=== PATIENT | female | born 1965 | race Caucasian/White ===

== ENCOUNTER 2017-04-12 17:46 | Emergency (ER) | payer BC ==
[2017-04-12 18:09] VITALS: BP 131/94
[2017-04-12] MEDS ORDERED: Tetan/Diph/Pertus SYR(Tdap)* 0.5 ML SYR(BOOSTRIX) use SYR IM ONE (18:39)
--- NOTE | 2017-04-12 18:48 | UC ---
Skin Complaint HPI - HPI Summary HPI Summary: This is a 51 yo female who cut herself shaving last week. She has been treating the area with triple antibiotic ointment and hydrogen peroxide. She reports she has persistent redness around the wound. No fever, malaise or drainage from the area. No significant pain in the leg. - History of Current Complaint Chief Complaint: UCSkin Time Seen by Provider: 04/12/17 18:15 Stated Complaint: RT LEG SKIN COMPLAINT Hx Last Menstrual Period: n/a - Allergy/Home Medications Allergies/Adverse Reactions: Allergies Allergy/AdvReac Type Severity Reaction Status Date / Time No Known Allergies Allergy Verified 04/12/17 18:03 Home Medications: Home Medications Multiple Vitamin [Multivitamins] 1 cap PO DAILY 04/12/17 [History Confirmed 12/22] Sertraline* [Zoloft*] 50 mg PO DAILY 04/12/17 [History Confirmed 04/12/17] Review of Systems Constitutional: Negative Skin: Other - non-healing wound Eyes: Negative ENT: Negative Respiratory: Negative Cardiovascular: Negative Gastrointestinal: Negative Genitourinary: Negative Motor: Negative Neurovascular: Negative Musculoskeletal: Negative Neurological: Negative Psychological: Negative All Other Systems Reviewed And Are Negative: Yes PMH/Surg Hx/FS Hx/Imm Hx Previously Healthy: Yes - Surgical History Surgical History: Yes Surgery Procedure, Year, and Place: hysterectomy 4-5 yrs ago - Family History Known Family History: Positive: None - Social History Alcohol Use: Occasionally Substance Use Type: None Smoking Status (MU): Never Smoked Tobacco Physical Exam Triage Information Reviewed: Yes Appearance: Well-Appearing Vital Signs: Initial Vital Signs Temp 99.3 F 04/12/17 18:05 Pulse 82 04/12/17 18:05 Resp 16 04/12/17 18:05 BP 131/94 04/12/17 18:05 Pulse Ox 99 04/12/17 18:05 Vital Signs Reviewed: Yes ENT Exam: Normal ENT: Positive: Hearing grossly normal Neck exam: Normal Neck: Positive: Supple, Nontender Respiratory: Positive: Lungs clear. Negative: Crackles, Rhonchi, Wheezing Cardiovascular Exam: Normal Cardiovascular: Positive: RRR, No Murmur Abdominal Exam: Normal Abdomen Description: Positive: Nontender, Soft Musculoskeletal Exam: Normal Musculoskeletal: Positive: Strength Intact Neurological Exam: Normal Neurological: Positive: Alert Skin: Positive: Other - wound on the lateral ankle ~3cm in length, some surrounding redness, no drainage Course/Dx - Course Course Of Treatment: This is a 51 yo female with a non-healing mildly infected leg wound from recent shaving accident. She is anxious about it not healing and an upcoming [place] vacation. Recommended that she stop using the triple abx ointment and H2O2. Use bacitracin and cover the area. If redness persists or becomes worse then wrote additional Rx for Keflex given her upcoming travel. - Differential Diagnoses - Skin Complaint Differential Diagnoses: Abscess, Cellulitis - Diagnoses Provider Diagnoses: 1. Infected R lower leg wound Discharge - Discharge Plan Condition: Stable Disposition: HOME Prescriptions: Bacitracin Zinc [Bacitracin] 1 applic TOPICAL BID #1 tube Cephalexin CAP* [Keflex CAP*] 500 mg PO TID #21 cap Patient Education Materials: Wound Infection (ED) Referrals: Kaitlynn Love MD [Primary Care Provider] - If Needed Additional Instructions: Instructions: 1. Please use bacitracin ointment twice daily 2. Cover with a bandage daily 3. If there is worsening redness start taking the oral antibiotic (Keflex) as prescribed
== END 2017-04-12 18:46 | disposition home or self-care (01) ==
LOC: UCCORT 17:46
DX: S81.811A Laceration without foreign body, right lower leg, initial encounter (principal); L08.9 Local infection of the skin and subcutaneous tissue, unspecified; Y93.E1 Activity, personal bathing and showering; W26.8XXA Contact with other sharp object(s), not elsewhere classified, initial encounter
CPT/HCPCS: 90471; 90715; 99202; G0463

== ENCOUNTER 2019-02-17 18:03 | Emergency (ER) | payer BC ==
[2019-02-17 18:41] VITALS: BP 137/71
[2019-02-17] MEDS ORDERED: Fluorescein Sodium TOPICAL* 1 MG TEST STRIP OPHTHALMIC ONE (19:07)
[2019-02-17] MEDS ORDERED: Tetracaine 0.5% OPTH.SOL 4 ML* 1 DROP BTL ONE (19:08)
--- NOTE | 2019-02-17 19:18 | UC ---
Eye Complaint HPI - HPI Summary HPI Summary: awoke with R eye irritation this am then got a yellow drainage. now the eyelids are red and swollen. + contact use and wore them today but is wearing her glasses now. no eye pain, visual loss, headache, fever, uri or pain with eye movement. - History of Current Complaint Chief Complaint: THERESAEyshalom Stated Complaint: RIGHT EYE COMPLAINT Time Seen by Provider: 02/17/19 18:52 Hx Obtained From: Patient Hx Last Menstrual Period: N/A Timing: Constant Pain Intensity: 7 Aggravating Factor(s): Nothing Alleviating Factor(s): Nothing Associated Signs And Symptoms: Positive: Drainage (Purulent). Negative: Photophobia, Vision Impairment Bilateral, Fever - Risk Factors Penetrating Injury Risk Factor: Negative Globe Rupture Risk Factors: Negative Acute Glaucoma Risk Factors: Negative Optic Artery Occlusion Risk Factors: Negative - Allergies/Home Medications Allergies/Adverse Reactions: Allergies Allergy/AdvReac Type Severity Reaction Status Date / Time No Known Allergies Allergy Verified 02/17/19 18:41 Home Medications: Home Medications amLODIPine TAB* [Norvasc 5 mg TAB*] 2.5 mg PO BEDTIME 02/17/19 [History Confirmed 02/17/19] PMH/Surg Hx/FS Hx/Imm Hx Cardiovascular History: Hypertension Psychological History: Depression - Surgical History Surgical History: Yes Surgery Procedure, Year, and Place: hysterectomy 4-5 yrs ago - Family History Known Family History: Positive: None - Social History Alcohol Use: Occasionally Substance Use Type: None Smoking Status (MU): Never Smoked Tobacco Review of Systems All Other Systems Reviewed And Are Negative: No Constitutional: Negative: Fever, Chills Skin: Positive: Rash - R eye lids Eyes: Positive: Drainage - OD, Eye Redness - od. Negative: Blurred Vision, Diplopia, Photophobia ENT: Negative: Sore Throat, Ear Ache, Nasal Discharge Neurological: Negative: Headache Physical Exam Triage Information Reviewed: Yes Appearance: Well-Appearing Vital Signs: Initial Vital Signs Temp 99 F 02/17/19 18:36 Pulse 109 02/17/19 18:36 Resp 17 02/17/19 18:36 BP 137/71 02/17/19 18:36 Pulse Ox 99 02/17/19 18:36 Vital Signs Reviewed: Yes Eyes: Positive: Other: - No auricular adenopathy. Mild R medial upper and lower eyelid erythema plus slight swelling. Conjunctiva OD slightly injected with yellow exudate to medial canthus. OS is clear. PERRL, EOMI and painless. AC's clear. Lids everted and no FB's. OD stained and examined with Millan lamp, no uptake. ENT: Positive: Pharynx normal, TMs normal. Negative: Nasal congestion, Nasal drainage Neck: Positive: Supple, Nontender, No Lymphadenopathy Respiratory: Positive: No respiratory distress Musculoskeletal: Positive: ROM Intact Neurological: Positive: Alert Psychological: Positive: Age Appropriate Behavior Skin Exam: Normal Eye Complaint Course/Dx - Differential Dx/Diagnosis Differential Diagnosis/HQI/PQRI: Other - no abrasions, dendrites or federica ulcerations. no concern for orbital cellulitis. Provider Diagnosis: Conjunctivitis, Periorbital cellulitis of right eye Discharge - Sign-Out/Discharge Documenting (check all that apply): Patient Departure All imaging exams completed and their final reports reviewed: No Studies - Discharge Plan Condition: Stable Disposition: HOME Prescriptions: Cephalexin CAP* [Keflex CAP*] 500 mg PO TID 10 Days #30 cap Patient Education Materials: Periorbital Cellulitis in Adults (ED), Conjunctivitis (ED) Referrals: Kaitlynn Love MD [Primary Care Provider] - 2 Days Additional Instructions: DISPOSE OF CURRENT CONTACTS AND AVOID FUTURE USE UNTIL CLEARED. DISPOSE OF CURRENT EYE MAKEUP AND AVOID FUTURE USE UNTIL CLEARED. GO THE THE ER FOR ANY WORSENING. - Billing Disposition and Condition Condition: STABLE Disposition: Home
[2019-02-17] MEDS ORDERED: Polymyx/Trimethoprim OPTH* 10 ML BTL RIGHT EYE ONE (19:25)
[2019-02-17] MEDS ORDERED: Cephalexin CAP* 500 MG PO ONE (19:28)
== END 2019-02-17 19:55 | disposition home or self-care (01) ==
LOC: UCCORT 18:03
DX: H10.9 Unspecified conjunctivitis (principal); L03.213 Periorbital cellulitis; I10 Essential (primary) hypertension
CPT/HCPCS: 99212; A9270-GY; G0463